=== PATIENT | female | born 1970 | race Caucasian/White ===

== ENCOUNTER 2016-11-26 12:53 | Emergency (ER) | payer OTHER ==
[2016-11-26 13:08] VITALS: BP 131/87
--- NOTE | 2016-11-26 13:33 | UC ---
Minor Trauma HPI - HPI Summary HPI Summary: Pt fell from a standing [place] while on a boat about a week ago, and has had R anterior chest wall pain since then. Pain is worse with upper body movement, cough, sneeze, and deep breaths. Pain is very pinpointed to one area. Denies SOB or fever. Tried taking naproxen without relief. - History of Current Complaint Chief Complaint: UCUpperExtremity Stated Complaint: RIB INJURY Time Seen by Provider: 11/26/16 13:05 Hx Obtained From: Patient ?: No Onset/Duration: Sudden Onset Onset Of Pain: Immediate Severity Initially: Moderate Severity Currently: Moderate Mechanism Of Injury: Fall From A Standing Position Aggravating Factor(s): Ambulation, Coughing, Deep Breaths, Movement Alleviating Factor(s): Nothing - Allergies/Home Medications Allergies/Adverse Reactions: Allergies Allergy/AdvReac Type Severity Reaction Status Date / Time No Known Allergies Allergy Verified 11/26/16 13:07 Home Medications: Home Medications Estrogen Patch 11/26/16 [History] PMH/Surg Hx/FS Hx/Imm Hx Previously Healthy: Yes - Surgical History Surgical History: Yes Surgery Procedure, Year, and Place: HYSTERECTOMY,WISDOM TEETH, T&A - Family History Known Family History: Negative: Blood Disorder - Social History Occupation: Employed Full-time Lives: With Family Alcohol Use: Rare Substance Use Type: None Smoking Status (MU): Never Smoked Tobacco Review of Systems Constitutional: Negative Skin: Negative Eyes: Negative ENT: Negative Respiratory: Negative Cardiovascular: Negative Gastrointestinal: Negative Genitourinary: Negative Motor: Negative Neurovascular: Negative Musculoskeletal: Other: - R rib tenderness Neurological: Negative Psychological: Negative All Other Systems Reviewed And Are Negative: Yes Physical Exam Triage Information Reviewed: Yes Appearance: Well-Appearing, No Pain Distress, Well-Nourished Vital Signs: Initial Vital Signs Temp 97.7 F 11/26/16 13:04 Pulse 62 11/26/16 13:04 Resp 18 11/26/16 13:04 BP 131/87 11/26/16 13:04 Pulse Ox 99 11/26/16 13:04 Vital Signs Reviewed: Yes Eye Exam: Normal, Other - PERRL Eyes: Positive: Conjunctiva Clear ENT Exam: Normal ENT: Positive: Normal ENT inspection, Hearing grossly normal, Pharynx normal, TMs normal Dental Exam: Normal Neck exam: Normal Neck: Positive: Supple, Nontender, No Lymphadenopathy Respiratory: Positive: Lungs clear, Normal breath sounds, No respiratory distress, No accessory muscle use, Other: - tender over R anterior border of ribs. Pain with indirect stress.. Negative: Chest non-tender Cardiovascular Exam: Normal Cardiovascular: Positive: RRR, No Murmur Musculoskeletal Exam: Other - R rib point tenderness Neurological Exam: Normal Neurological: Positive: Alert Psychological Exam: Normal Skin Exam: Normal Minor Trauma Course/Dx - Course Course Of Treatment: Discussed no change in treatment with x-ray but x-ray offered. Pt understands and is comfortable foregoing imaging today. She will return here or see PCP if she changes her mind or if she develops fever, trouble breathing, or other worsening. - Differential Dx/Diagnosis Provider Diagnoses: R anterior rib fracture closed, nondisplaced, clinical diagnosis Discharge - Discharge Plan Condition: Stable Disposition: HOME Prescriptions: Indomethacin CAP* [Indocin CAP*] 25 - 50 mg PO TID PRN #[id number] cap PRN Reason: Pain Patient Education Materials: Rib Fracture (ED) Referrals: Ella Allred NP [Primary Care Provider] - Additional Instructions: As we discussed, you have strong clinical indication of rib fracture. Because there is no particular treatment for this, you can continue to monitor your symptoms at home. Try using the indomethacin for pain; keep moving as much as you can tolerate and make sure you take frequent deep breaths to help prevent pneumonia complications. I expect your pain to gradually improve over 3-5 weeks. If you develop fever, trouble breathing, or severe pain, please return here or see your primary care provider.
== END 2016-11-26 13:58 | disposition home or self-care (01) ==
LOC: UCEAST 12:53
DX: S22.31XA Fracture of one rib, right side, initial encounter for closed fracture (principal); W18.30XA Fall on same level, unspecified, initial encounter; Y93.89 Activity, other specified; Y92.814 Boat as the place of occurrence of the external cause; Z90.710 Acquired absence of both cervix and uterus
CPT/HCPCS: 99212; G0463

== ENCOUNTER 2017-10-24 07:04 | Emergency (ER) | payer BC ==
[2017-10-24 07:23] VITALS: BP 152/90
--- NOTE | 2017-10-24 07:45 | UC ---
Respiratory Complaint HPI - HPI Summary HPI Summary: 5 days of cough, congestion, headache and body aches. Intermittent ear discomfort. No fever, nausea/vomiting. Patient currently taking doxycycline once daily for malaria prophylaxis as she is leaving for [facility] today. - History of Current Complaint Chief Complaint: UCRespiratory Stated Complaint: COUGH CONGESTION HEADACHE Time Seen by Provider: 10/24/17 07:10 Hx Obtained From: Patient Onset/Duration: Gradual Onset, Lasting Days, Still Present Timing: Constant Severity Initially: Moderate Severity Currently: Moderate Pain Intensity: 4 Pain Scale Used: 0-10 Numeric Character: Cough: Nonproductive Aggravating Factors: Nothing Alleviating Factors: Nothing Associated Signs And Symptoms: Positive: URI, Nasal Congestion. Negative: Dyspnea, Fever, Wheezing - Allergies/Home Medications Allergies/Adverse Reactions: Allergies Allergy/AdvReac Type Severity Reaction Status Date / Time No Known Allergies Allergy Verified 10/24/17 07:19 Home Medications: Home Medications DOXYcycline CAP(*) [DOXYcycline 100MG CAP(*)] 1 tab PO DAILY 10/24/17 [History Confirmed 10/24/17] Naproxen Sodium [Aleve] 1 tab PO ONCE 10/24/17 [History Confirmed 10/24/17] PMH/Surg Hx/FS Hx/Imm Hx Previously Healthy: Yes - Surgical History Surgical History: Yes Surgery Procedure, Year, and Place: HYSTERECTOMY,WISDOM TEETH, T&A - Family History Known Family History: Positive: Hypertension Negative: Blood Disorder - Social History Alcohol Use: Rare Substance Use Type: None Smoking Status (MU): Never Smoked Tobacco Review of Systems Constitutional: Fatigue ENT: Nasal Discharge Respiratory: Cough Cardiovascular: Negative Gastrointestinal: Negative Musculoskeletal: Myalgia Neurological: Headache All Other Systems Reviewed And Are Negative: Yes Physical Exam Triage Information Reviewed: Yes Appearance: Well-Appearing, No Pain Distress, Well-Nourished Vital Signs: Initial Vital Signs Temp 98.9 F 10/24/17 07:11 Pulse 66 10/24/17 07:11 Resp 20 10/24/17 07:11 BP 152/90 10/24/17 07:11 Pulse Ox 97 10/24/17 07:11 Vital Signs Reviewed: Yes Eyes: Positive: Conjunctiva Clear ENT: Positive: Hearing grossly normal, Pharynx normal, TMs normal Neck: Positive: Supple, Nontender, No Lymphadenopathy Respiratory Exam: Normal Cardiovascular Exam: Normal Abdomen Description: Positive: Soft Musculoskeletal: Positive: No Edema Neurological: Positive: Alert Psychological: Positive: Age Appropriate Behavior Skin: Negative: rashes UC Diagnostic Evaluation - Laboratory O2 Sat by Pulse Oximetry: 97 Respiratory Course/Dx - Differential Dx/Diagnosis Provider Diagnoses: ACUTE URI Discharge - Sign-Out/Discharge Documenting (check all that apply): Patient Departure - Discharge Plan Condition: Stable Disposition: HOME Prescriptions: Azithromycin 500 mg PO DAILY #5 tab Patient Education Materials: Upper Respiratory Infection (ED) Referrals: Floyd Bettencourt MD [Primary Care Provider] - If Needed Additional Instructions: YOUR SYMPTOMS ARE LIKELY VIRALLY MEDIATED AND SHOULD RESOLVE ON THEIR OWN WITH TIME. NO INDICATION FOR ANTIBIOTICS AT PRESENT, BUT GIVEN YOUR UPCOMING [employer] WILL GIVE RX FOR AZITH TO HAVE ON HAND SHOULD YOU NOT IMPROVE EXPECTED. REST, HYDRATE, OTC MEDS NEEDED. USE OTC AFRIN FOR NASAL CONGESTION. 2 SPRAYS IN EACH NOSTRIL TWICE DAILY NEEDED. DO NOT USE FOR MORE THAN 3-4 DAYS IN A ROW TO PREVENT DEVELOPING REBOUND CONGESTION. YOUR BLOOD PRESSURE WAS ELEVATED TODAY (152/90). THIS MAY BE DUE TO YOUR ACUTE CONDITION. MONITOR AND FOLLOW-UP WITH YOUR PCP WITHIN 4 WEEKS IF IT HAS NOT RETURNED TO NORMAL. - Billing Disposition and Condition Condition: STABLE Disposition: Home
== END 2017-10-24 07:56 | disposition home or self-care (01) ==
LOC: UCEAST 07:04
DX: J06.9 Acute upper respiratory infection, unspecified (principal); R51 Headache
CPT/HCPCS: 99212; G0463